=== PATIENT | female | born 1950 | race Caucasian/White ===

== ENCOUNTER → 2017-07-05 | Day surgery (SDC) | payer MEDICARE ==
[~2017-07-05] MED LIST: LACTATED RINGER'S 1000 ML INJ 1,000 ML; PROPOFOL 200 MG/20 ML AMP IV
== END | disposition home or self-care (01) ==
LOC: ESDC 07:20
DX: K21.9 Gastro-esophageal reflux disease without esophagitis (principal); K22.70 Barrett's esophagus without dysplasia; K44.9 Diaphragmatic hernia without obstruction or gangrene; K29.70 Gastritis, unspecified, without bleeding
CPT/HCPCS: 00731; 88305; 88305-59; 88312